=== PATIENT | male | born 1995 | race Caucasian/White ===

== ENCOUNTER 2022-06-03 10:29 | Emergency (ER) | payer SELFPAY ==
[2022-06-03] MEDS ORDERED: Famotidine 20 MG TAB ONE (10:58)
[2022-06-03] MEDS ORDERED: diphenhydrAMINE 25 MG CAP ONE (10:58)
[2022-06-03] MEDS ORDERED: Amoxicillin/Potassium Clav 875 MG TAB ONE (10:58)
[2022-06-03] MEDS ORDERED: predniSONE 20 MG TAB ONE (10:58)
== END 2022-06-03 12:24 | disposition home or self-care (01) ==
LOC: MADERS 10:29
DX: R21 Rash and other nonspecific skin eruption (principal); T78.40XA Allergy, unspecified, initial encounter; K04.7 Periapical abscess without sinus; F17.290 Nicotine dependence, other tobacco product, uncomplicated
CPT/HCPCS: 99283; J7512